=== PATIENT | male | born 1995 ===

== ENCOUNTER 2017-03-31 03:59 | Emergency (ER) | payer SELFPAY ==
[2017-03-31 04:07] VITALS: BP 148/105; PULSE 89; RESP 18; TEMP 98.6; O2SAT 98
--- NOTE | 2017-03-31 04:33 | ED PDOC ---
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 Patient admits to drinking tonight, states his left wrist was injured during the arrest. Denies pain, numbness/weakness, limitation of movement. Patient denies suicidal/homicidal ideations. Past Medical History Reviewed: Historical Data, Nursing Documentation, Vital Signs Vital Signs: Last Vital Signs Temp 98.6 F 03/31/17 04:05 Pulse 89 03/31/17 04:05 Resp 18 03/31/17 04:05 BP 148/105 H 03/31/17 04:05 Pulse Ox 98 03/31/17 04:05 - Medical History PMH: No Chronic Diseases - Surgical History Surgical History: No Surg Hx - Family History Family History: States: No Known Family Hx - Social History Ex-Smoker (has not smoked in the last 12 months): Yes Alcohol: Occasional Drugs: Denies - Allergies Allergies/Adverse Reactions: Allergies Allergy/AdvReac Type Severity Reaction Status Date / Time No Known Allergies Allergy Verified 03/31/17 04:05 Review of Systems ROS Statement: Except As Marked, All Systems Reviewed And Found Negative Musculoskeletal: Positive for: Hand Pain (left wrist cut) Physical Exam - Reviewed Nursing Documentation Reviewed: Yes Vital Signs Reviewed: Yes - Physical Exam Appears: Positive for: Well, Non-toxic, No Acute Distress Head Exam: Positive for: ATRAUMATIC, NORMAL INSPECTION, NORMOCEPHALIC Skin: Positive for: Normal Color Eye Exam: Positive for: Normal appearance ENT: Positive for: Normal ENT Inspection Cardiovascular/Chest: Positive for: Regular Rate, Rhythm Respiratory: Positive for: Normal Breath Sounds Gastrointestinal/Abdominal: Positive for: Normal Exam Back: Positive for: Normal Inspection Extremity: Positive for: Normal ROM, Other (abrasion left lateral wrist. FROM. No swelling, tenderness, deformity noted) Neurologic/Psych: Positive for: Alert, Oriented, Gait (steady) - ECG O2 Sat by Pulse Oximetry: 98 - Progress ED Course And Treament: accucheck, crisis eval Abrasion cleaned with normal saline, bacitracin applied, bandaged. Patient evaluated by blood bank worker and cleared for discharge as per Dr. Pimentel. Disposition - Clinical Impression Clinical Impression: Abrasion of wrist, left, Adjustment disorder, Alcohol use - Patient ED Disposition Is Patient to be Admitted: No Counseled Patient/Family Regarding: Studies Performed, Diagnosis, Need For Followup - Disposition Disposition: Discharged/Transfer to Law Enforcement Disposition Time: 04:34 Condition: STABLE Additional Instructions: Patient medically and psychiatrically cleared for incarceration Instructions: Abrasion (ED), Alcohol Intoxication (ED) Print Language: SENEGALESE
== END 2017-03-31 05:30 ==
LOC: H.ER 03:59
DX: F10.10 Alcohol abuse, uncomplicated (principal); F43.20 Adjustment disorder, unspecified